=== PATIENT | female | born 1990 | race Caucasian/White ===

== ENCOUNTER 2016-11-04 10:40 | Inpatient (IN) | payer BC ==
[2016-11-14 01:41] VITALS: BMI 31.9
[2016-11-14] MEDS ORDERED: CARBOPROST TROMETHAMINE 250 MCG/ML 1 ML AMP IM PRN (01:48)
[2016-11-14] MEDS ORDERED: TERBUTALINE 1 MG/ML VIAL SQ PRN (01:48)
[2016-11-14] MEDS ORDERED: METHYLERGONOVINE 0.2 MG/ML 1 ML AMP IM PRN (01:48)
[2016-11-14] MEDS ORDERED: OXYTOCIN 10 UNIT/ML 1 ML VIAL IM PRN (01:48)
[2016-11-14] MEDS ORDERED: LIDOCAINE 1% (PF) 10 MG/ML (30 ML SDV) SQ PRN (01:48)
[2016-11-14 02:02] LABS: Basophils % (A) 0 %; CH 29.4; Eosinophils # (A) 0.1 k/uL (0-0.7); Eosinophils % (A) 1 %; HCT 38.9 % (34.0-46.0); HDW 2.84; HGB 13.1 gm/dL (11.4-16.0); Luc # (Auto) 0.26; Luc % (Auto) 2; Lymphocytes # (A) 1.6 k/uL (1.0-4.8); Lymphocytes % (A) 11 %; MCH 29.1 pg (25.0-35.0); MCHC 33.6 g/dL (31.0-37.0); MCV 86.7 fL (80.0-100.0); Mean Platelet Volume 9.3; Monocytes # (A) 0.9 k/uL (0-1.0); Monocytes % (A) 6 %; Neutrophils # (A) 11.8 k/uL (1.3-7.7); Neutrophils % (A) 80 %; RBC 4.49 m/uL (3.80-5.40); RDW 15.1 % (11.5-15.5); WBC 14.7 k/uL (3.8-10.6); WBC (Perox) 14.76
[2016-11-14] MEDS: LACTATED RINGERS 1,000 ML IV SCH ×3 (02:03→06:50)
[2016-11-14] MEDS: BUTORPHANOL 1 MG/ML 1 ML VIAL IV PRN ×2 (02:29→04:40)
[2016-11-14] MEDS ORDERED: BUPIVACAINE (PF) 0.25% 30 ML VIAL ONE (06:20)
[2016-11-14] MEDS ORDERED: fentaNYL (PF) 50 MCG/ML 5 ML AMP ONE (06:20)
[2016-11-14] MEDS ORDERED: SODIUM CHLORIDE 0.9% 100 ML BAG ONE (06:20)
[2016-11-14] MEDS: OXYTOCIN 30 UNITS/500 ML NS 30 UNIT in SALINE 1 500ML.BAG IV SCH ×3 (06:21→17:02)
--- NOTE | 2016-11-14 12:35 | P.HPOB ---
History of Present Illness H&P Date: 11/14/16 Originally scheduled for induction, but presented with strong regular uterine contractions in early active labor. Patient was monitored in the triage area and cervical change was noted. She denied fluid leakage or vaginal bleeding. Past medical history is essentially negative. Obstetric history blood type is A+, rubella status immune. Urine culture, gonorrhea and chlamydia cultures, Pap smear, HIV testing, hepatitis B surface antigen, group B strep cultures all negative. One-hour Glucola 108. Social history patient is , she has never been a smoker, she denies alcohol or drug use. Past surgical history is negative. Current medications vitamins daily. ALLERGIES none known. Family history significant for diabetes, unspecified heart issues, gout and shingles. On exam this is a pleasant white female, 5 foot 1 inch, 169 pounds, vital signs are stable and she is afebrile, blood pressure 130/87 on admission. The general physical exam is within normal limits. Chest is clear in all tong. Extremities are negative for edema. Cervix the time of admission was 6 cm dilated, 100% effaced, -2 station, vertex presentation. Artificial amniorrhexis revealed clear fluid. heart rate in the 110s to 140s baseline with good overall variability. Impression: 41-3/7 weeks intrauterine , arriving in active spontaneous labor. Plan: Close maternal and surveillance. Epidural per patient's request. Anticipate normal spontaneous vaginal delivery. Review of Systems Negative except as in HPI Past Medical History History of Any Multi-Drug Resistant Organisms: None Reported Past Surgical History: No Surgical Hx Reported Past Anesthesia/Blood Transfusion Reactions: No Reported Reaction Past Psychological History: No Psychological Hx Reported Smoking Status: Never smoker - Past Family History Father Family Medical History: No Reported History Medications and Allergies Home Medications Medication Instructions Recorded Confirmed Type Pnv with Ca,No.72/Iron/FA 1 each PO DAILY 11/14/16 11/14/16 History [ Plus Tablet] Allergies Allergy/AdvReac Type Severity Reaction Status Date / Time No Known Allergies Allergy Verified 11/14/16 01:33 Exam - Vital Signs Vital signs: Intake and Output 11/13/16 11/14/16 11/14/16 22:59 06:59 14:59 Other: # Voids 1 Weight 76.657 kg See dictation under HPI, please Results Result Diagrams: 11/14/16 01:50 Abnormal Lab Results - Last 24 Hours (Table) 11/14/16 Range/Units 01:50 WBC 14.7 H (3.8-10.6) k/uL Plt Count 146 L (150-450) k/uL Neutrophils # 11.8 H (1.3-7.7) k/uL Assessment and Plan Plan: Close maternal and surveillance. Anticipate normal spontaneous vaginal delivery. Time with Patient: Less than 30
--- NOTE | 2016-11-14 12:38 | P.PROBDLV ---
Vaginal Delivery Note - . Vaginal Delivery Note: This is a 25-year-old white female 1 para 0 EDC 11/14/2016 at 41-3/7 weeks' gestation. Patient was originally scheduled for induction, but presented in active spontaneous labor, all signs reassuring. Artificial amniorrhexis revealed clear fluid. Please see my dictated history and physical for details. Patient requested an epidural and this was placed without difficulty per the anesthesia staff. She was judged to be completely dilated and began the second stage of labor at that time. Perineal body was redraped and prepped. With excellent maternal expulsive efforts the infant's head delivered occiput anterior and she restituted accordingly. The left or anterior shoulder was gently and easily delivered from underneath the pubic symphysis at which time the oropharynx, nasopharynx, and external nares were bulb suctioned on the perineal body. The delivered a liveborn female infant with scores of 9 and 10 at one and 5 minutes respectively at one 211 hours. Umbilical cord was doubly clamped and ligated, she was handed to waiting nurses for evaluation. Infant weighed 4195 g or 9 lbs. 4 oz. The uterus was massaged. Inspection now of the cervix, vagina, perineum, periurethral, and perirectal areas revealed a small left labial laceration. This was injected with 1% lidocaine and repaired with 2 single [id number] sutures of 3-0 Vicryl for excellent reapproximation. Fundus is firm and in the midline, bleeding was initially somewhat brisk and therefore and IM shot of Methergine was given with good results. Total estimated blood loss 400 mL's. All sponge needle and is because are correct at the end of the procedure. Patient and her family are allowed to begin the bonding experience in the LDR.
[2016-11-14] MEDS ORDERED: WITCH HAZEL 1 EACH MED..PAD TOPICAL PRN (12:39)
[2016-11-14] MEDS ORDERED: diphenhydrAMINE 50 MG CAP PO PRN (12:39)
[2016-11-14] MEDS ORDERED: diphenhydrAMINE 25 MG CAP PO PRN (12:39)
[2016-11-14] MEDS ORDERED: diphenhydrAMINE 50 MG/ML 1 ML VIAL IVP PRN ×2 (12:39)
[2016-11-14] MEDS ORDERED: SIMETHICONE 80 MG CHEWABLE PO PRN (12:39)
[2016-11-14] MEDS ORDERED: BENZOCAINE/MENTHOL SPRAY 1 GM/SPRAY AEROSOL TOPICAL PRN (12:39)
[2016-11-14] MEDS ORDERED: Acetaminophen-Codeine 300-30mg TAB PO PRN (12:39)
[2016-11-14] MEDS ORDERED: ACETAMINOPHEN TAB 325 MG TAB PO PRN (12:39)
[2016-11-14] MEDS ORDERED: diphenhydrAMINE ELIXIR 25 MG/10 ML CUP PO PRN (12:39)
[2016-11-14] MEDS ORDERED: LANOLIN CREAM 5 GM TUBE TOPICAL PRN (12:39)
[2016-11-14] MEDS ORDERED: ZOLPIDEM 5 MG TAB PO PRN (12:39)
[2016-11-14] MEDS ORDERED: BISACODYL 10 MG SUPP RECTAL PRN (12:39)
[2016-11-14] MEDS ORDERED: HYDROCORTISONE 2.5% RECTAL CREAM 30 GM TUBE RECTAL PRN (12:39)
[2016-11-14 14:16] LABS: Basophils % (A) 0 %; CH 29.2; CHCM 33.1; Eosinophils % (A) 0 %; HDW 2.74; HGB 11.6 gm/dL (11.4-16.0); Luc # (Auto) 0.14; Luc % (Auto) 1; Lymphocytes # (A) 0.8 k/uL (1.0-4.8); Lymphocytes % (A) 4 %; MCH 29.4 pg (25.0-35.0); MCHC 33.1 g/dL (31.0-37.0); MCV 88.8 fL (80.0-100.0); Monocytes % (A) 5 %; Neutrophils # (A) 19.1 k/uL (1.3-7.7); Neutrophils % (A) 91 %; RBC 3.94 m/uL (3.80-5.40); RDW 15.3 % (11.5-15.5); WBC (Perox) 22.74
[2016-11-14 18:48] VITALS: RESP 16
[2016-11-14] MEDS: SENNOSIDES-DOCUSATE SODIUM 1 EACH TAB PO SCH ×2 (19:52→21:31)
[2016-11-14] MEDS: IBUPROFEN 600 MG TAB PO PRN (21:32)
[2016-11-15] MEDS: SENNOSIDES-DOCUSATE SODIUM 1 EACH TAB PO SCH (07:51)
[2016-11-15] MEDS: IBUPROFEN 600 MG TAB PO PRN (07:53)
--- NOTE | 2016-11-15 08:04 | P.DS ---
Providers Date of admission: 11/14/16 01:11 Expected date of discharge: 11/15/16 Attending physician: Amelie Ramires Primary care physician: Stated None - Discharge Diagnosis(es) (1) Post-dates Current Visit: Yes Status: Acute (2) Normal spontaneous vaginal delivery Current Visit: Yes Status: Acute Hospital Course: This is a 25-year-old 1 now para 1 woman who presented in early active labor at 41-3/7 weeks gestation. Following admission she underwent artificial rupture of membranes. She received an epidural anesthetic. She went on to have an uncomplicated delivery of a liveborn female infant weighing 9 lbs. 4 oz. with Apgars of 9 at 1 minute and 10 at 5 minutes. She had a small left labial laceration that was repaired. She had a mild hemorrhage with an EBL approximately 400 mL's. This was managed with Methergine and Pitocin. On the morning of day #1 the patient was doing very well. She was ambulating and voiding without difficulty. Her vital signs were stable. Her postdelivery hemoglobin was 11.6 which was down from 13.1. She reported minimal lochia and was breast-feeding successfully. She was deemed stable for discharge home. Procedures: Normal spontaneous vaginal delivery Patient Condition at Discharge: Good Plan - Discharge Summary Discharge Medication List Pnv with Ca,No.72/Iron/FA [ Plus Tablet] 1 each PO DAILY 11/14/16 [ History] Follow up Appointment(s)/Referral(s): Amelie Ramires MD [STAFF PHYSICIAN] - 6 Weeks Activity/Diet/Wound Care/Special Instructions: Follow-up in the office in 6 weeks . Call with any concerning signs or symptoms including heavy vaginal bleeding, severe abdominal pain, fever greater than 101, swelling or redness of the lower extremities, foul vaginal discharge, or signs of depression. Nothing in the vagina for 6 weeks after delivery, specifically no intercourse. Discharge Disposition: HOME SELF-CARE
[2016-11-15 14:04] VITALS: BP 115/62; PULSE 97; TEMP 98
== END 2016-11-15 15:45 | disposition home or self-care (01) | DRG 774 ==
LOC: 4FBP 11-14 01:11
PROVIDERS: ADMIT Obstetrics & Gynecology; ATTEND Obstetrics & Gynecology
PROC: 00HU33Z Insertion of Infusion Device into Spinal Canal, Percutaneous Approach (ICD-10-PCS; principal; 2016-11-14)
PROC: 10907ZC Drainage of Amniotic Fluid, Therapeutic from Products of Conception, Via Natural or Artificial Opening (ICD-10-PCS; principal; 2016-11-14)
PROC: 3E0R3CZ (ICD-10-PCS; principal; 2016-11-14)
PROC: 0HQ9XZZ Repair Perineum Skin, External Approach (ICD-10-PCS; principal; 2016-11-14)
PROC: 10E0XZZ Delivery of Products of Conception, External Approach (ICD-10-PCS; principal; 2016-11-14)
DX: O48.0 Post-term pregnancy (principal); O72.1 Other immediate postpartum hemorrhage; Z37.0 Single live birth; O70.0 First degree perineal laceration during delivery; Z3A.41 41 weeks gestation of pregnancy
CPT/HCPCS: 85025; 88307

== ENCOUNTER 2018-11-10 07:59 | Inpatient (IN) | payer BC ==
[2018-11-10] MEDS: LACTATED RINGERS 1,000 ML IV SCH ×2 (08:30→11:00)
--- NOTE | 2018-11-10 09:10 | P.HPOB ---
History of Present Illness H&P Date: 11/10/18 This is a 27-year-old white female 2 para 1001 EDC 11/09/2018 at 40 and one sevenths weeks' gestation. Patient presents this morning with strong regular uterine contractions whicj started at home this morning is well. She denies bleeding or fluid leakage. Fetus is been active throughout the . Past medical history is essentially negative. Past surgical history is negative. Current medications vitamins daily. ALLERGIES none known. Family history significant for diabetes, hypertension, gout, and creatinine disease, and shingles. Reproductive history is significant for 9 lbs. 4 oz. vaginal delivery 2017. Social history patient is , she is never been a smoker, she denies alcohol or drug use. history is significant for blood type A+, rubella status immune. VDRL testing, hepatitis B surface antigen, HIV testing, group B strep cultures all negative. One-hour Glucola 99. On exam this is a pleasant white female who is 5 foot 0 inches, 168 pounds, blood pressure 115/79, patient is afebrile. The general physical exam is within normal limits. The chest is clear in all tong. Extremities reveal no edema. Cervix is 8-9 cm on admission, intact membranes, vertex presentation, 90 % effaced, -1 station. heart rate consistent with reactive NST. Assessment: 40 and one sevenths weeks intrauterine , active spontaneous labor, delivery imminent. Plan: Continue close maternal and surveillance. Analgesic options are reviewed and declined. Anticipate normal spontaneous vaginal delivery. Review of Systems Constitutional: Reports as per HPI Past Medical History History of Any Multi-Drug Resistant Organisms: None Reported Past Surgical History: No Surgical Hx Reported Past Anesthesia/Blood Transfusion Reactions: No Reported Reaction Past Psychological History: No Psychological Hx Reported Smoking Status: Never smoker - Past Family History Father Family Medical History: No Reported History Medications and Allergies Home Medications Medication Instructions Recorded Confirmed Type Pnv,Calcium 72/Iron/Folic Acid 1 each PO DAILY 11/14/16 11/10/18 History [ Plus Tablet] Allergies Allergy/AdvReac Type Severity Reaction Status Date / Time No Known Allergies Allergy Verified 11/14/16 01:33 Exam See dictation under HPI please Assessment and Plan Assessment: 40 and one sevenths weeks intrauterine , active labor, delivery imminent. All signs reassuring. Plan: Anticipate normal spontaneous vaginal delivery. Time with Patient: Less than 30
[2018-11-10] MEDS ORDERED: diphenhydrAMINE 50 MG/ML 1 ML VIAL IVP PRN ×2 (09:13)
[2018-11-10] MEDS ORDERED: HYDROCORTISONE 2.5% RECTAL CREAM 30 GM TUBE RECTAL PRN (09:13)
[2018-11-10] MEDS ORDERED: diphenhydrAMINE 50 MG CAP PO PRN (09:13)
[2018-11-10] MEDS ORDERED: diphenhydrAMINE 25 MG CAP PO PRN (09:13)
[2018-11-10] MEDS ORDERED: ZOLPIDEM 5 MG TAB PO PRN (09:13)
[2018-11-10] MEDS ORDERED: LANOLIN CREAM 5 GM TUBE TOPICAL PRN (09:13)
[2018-11-10] MEDS ORDERED: SIMETHICONE 80 MG CHEWABLE PO PRN (09:13)
[2018-11-10] MEDS ORDERED: BENZOCAINE/MENTHOL SPRAY 1 GM/SPRAY AEROSOL TOPICAL PRN (09:13)
[2018-11-10] MEDS ORDERED: WITCH HAZEL 1 EACH MED..PAD TOPICAL PRN (09:13)
[2018-11-10] MEDS ORDERED: ACETAMINOPHEN TAB 325 MG TAB PO PRN (09:13)
[2018-11-10] MEDS ORDERED: diphenhydrAMINE ELIXIR 25 MG/10 ML CUP PO PRN (09:13)
[2018-11-10] MEDS ORDERED: HYDROcodone/APAP 5-325MG 1 EACH TAB PO PRN (09:13)
--- NOTE | 2018-11-10 09:13 | P.PROBDLV ---
Vaginal Delivery Note - . Vaginal Delivery Note: This is a 27-year-old white female 2 para 1001 EDC 11/09/2016 at 40 and one sevenths weeks' gestation. Patient presented this morning from home with strong regular uterine contractions, in active labor. is essentially unremarkable. Blood type A+, rubella status immune, group B strep cultures negative. Please see my dictated history and physical for details. On admission patient was 8-9 cm dilated. Artificial amniorrhexis revealed clear abundant fluid. heart tones were reassuring throughout the first and second stages of labor. 90% effacement, 0 station was noted. Patient had an urge to push and was completely dilated minutes afterwards. Perineal body was prepped and draped in usual sterile fashion. With excellent expulsive efforts the head delivered occiput anterior and he restituted accordingly. There was a nuchal cord 1 that was reduced on the perineal body. The left or anterior shoulder was delivered from underneath the pubic symphysis at which time the oropharynx, nasopharynx and external nares were all bulb suctioned on the perineal body. Patient was officially delivered of a liveborn male at 0843 hours. Umbilical cord was doubly clamped and ligated. He was handed to waiting nurses for evaluation where scores of 9 and 10 at one and 5 minutes respectively were given. The placenta delivered spontaneously, it was inspected and noted to be intact with trivascular cord at 0846 hours. Uterus is then massaged. Inspection of the cervix, vagina, perineum, and periurethral areas revealed no lacerations and no defects. Fundus is firm and in the midline, symmetric and 16 week size upon completion of delivery. Total estimated blood loss 250 mL's. weighs 8 lbs. 6 oz. or 3810 g. Patient and her are requesting circumcision further son.
[2018-11-10] MEDS ORDERED: OXYTOCIN 20 UNITS/1000 ML NS 1,000 ML IV SCH (09:15)
[2018-11-10 10:22] VITALS: BMI 32.8
[2018-11-10] MEDS: IBUPROFEN 600 MG TAB PO PRN ×2 (11:52→18:25)
[2018-11-10] MEDS: SENNOSIDES-DOCUSATE SODIUM 1 EACH TAB PO SCH (21:47)
[2018-11-11 00:30] VITALS: RESP 15
[2018-11-11] MEDS: IBUPROFEN 600 MG TAB PO PRN (04:39)
[2018-11-11] MEDS: SENNOSIDES-DOCUSATE SODIUM 1 EACH TAB PO SCH (07:40)
--- NOTE | 2018-11-11 07:48 | P.DS ---
Providers Date of admission: 11/10/18 08:16 Expected date of discharge: 11/11/18 Attending physician: Amelie Ramires Primary care physician: Stated None Hospital Course: This is a 27-year-old white female 2 para 1001 EDC 11/09/2018 at 40 and one sevenths weeks' gestation. Patient presented in active spontaneous labor from home. Fetus is been active throughout the . She denied vaginal bleeding or fluid leakage. history significant for rubella immune, blood type A+, group B strep cultures negative. Please see dictated history and physical for details. Patient was admitted and quickly underwent a spontaneous vaginal delivery. She gave to a liveborn male with scores of 9 and 10 at one and 5 minutes respectively. There was a nuchal cord easily reduced, and estimated blood loss of 250 mL, and and intact perineal body not requiring suturing. weighed 8 lbs. 6 oz. or 3810 g. Please see dictated delivery note for details. This morning the patient is doing well. She is voiding, ambulating and passing flatus without difficulty. Vital signs are stable and she is afebrile. Fundus is firm and in the midline, symmetric and 16-18 week size. Breasts are not engorged. Perineal body is clean and dry. Patient is judged to be in excellent condition for discharge home. She is being discharged home today and will follow-up with me in the office in 6 weeks. I have reminded her no intercourse, tampons or douching. She will use [id number] Advil or Aleve as needed for pain, or ibuprofen tablets, 200 mg pills, 3 every 6 hours as needed. She will call me with any fevers shakes or chills, foul smelling or copious lochia, with the passage of large blood clots, with any pain not alleviated by [id number] products, or indeed with any concerns. Patient Condition at Discharge: Good Plan - Discharge Summary Discharge Rx Participant: No New Discharge Prescriptions: No Action Pnv,Calcium 72/Iron/Folic Acid [ Plus Tablet] 1 each PO DAILY Discharge Medication List Pnv,Calcium 72/Iron/Folic Acid [ Plus Tablet] 1 each PO DAILY 11/14/16 [ History] Discharge Disposition: HOME SELF-CARE
[2018-11-11 08:40] VITALS: BP 107/68; PULSE 73; TEMP 97.6
== END 2018-11-11 11:06 | disposition home or self-care (01) | DRG 807 ==
LOC: FBPOP 07:59 → 4FBP 08:16
PROVIDERS: ADMIT Obstetrics & Gynecology; ATTEND Obstetrics & Gynecology
PROC: 10E0XZZ Delivery of Products of Conception, External Approach (ICD-10-PCS; principal; 2018-11-10)
DX: O69.81X0 Labor and delivery complicated by cord around neck, without compression, not applicable or unspecified (principal); Z37.0 Single live birth; Z3A.40 40 weeks gestation of pregnancy; Z82.49 Family history of ischemic heart disease and other diseases of the circulatory system; Z83.3 Family history of diabetes mellitus

== ENCOUNTER 2024-10-16 05:28 | Inpatient (IN) | payer SELFPAY ==
[2024-10-16] MEDS: LACTATED RINGERS 1,000 ML IV SCH (05:50)
[2024-10-16] MEDS ORDERED: TERBUTALINE 1 MG/ML VIAL SQ PRN (05:51)
[2024-10-16] MEDS ORDERED: CARBOPROST TROMETHAMINE 250 MCG/ML 1 ML AMP IM PRN (05:51)
[2024-10-16] MEDS ORDERED: LIDOCAINE 0.5% (PF) 5 MG/ML (50 ML SDV) SQ PRN (05:51)
[2024-10-16] MEDS ORDERED: miSOPROStoL 200 MCG TAB RECTAL PRN (05:51)
[2024-10-16] MEDS ORDERED: TRANEXAMIC 1,000 MG/100ML-NACL 1,000 MG in EMPTY BAG 1 BAG IV PRN (05:51)
[2024-10-16] MEDS ORDERED: METHYLERGONOVINE 0.2 MG/ML 1 ML AMP IM PRN (05:51)
[2024-10-16] MEDS ORDERED: miSOPROStoL 200 MCG TAB PO PRN (05:51)
[2024-10-16] MEDS ORDERED: OXYTOCIN 10 UNIT/ML 1 ML VIAL IM PRN (05:51)
[2024-10-16 06:15] LABS: Basophils # (A) 0.1 k/uL (0-0.2); Basophils % (A) 0 %; Eosinophils # (A) 0.2 k/uL (0-0.7); Eosinophils % (A) 1 %; HCT 38.5 % (34.0-46.0); HGB 12.6 gm/dL (11.4-16.0); Lymphocytes # (A) 2.5 k/uL (1.0-4.8); Lymphocytes % (A) 18 %; MCH 27.9 pg (25.0-35.0); MCHC 32.8 g/dL (31.0-37.0); MCV 85.2 fL (80.0-100.0); Mean Platelet Volume 8.5; Monocytes # (A) 0.7 k/uL (0-1.0); Monocytes % (A) 5 %; Neutrophils # (A) 10.1 k/uL (1.3-7.7); Neutrophils % (A) 74 %; Platelet Count 161 k/uL (150-450); RBC 4.52 m/uL (3.80-5.40); RDW 15.1 % (11.5-15.5); WBC 13.7 k/uL (3.8-10.6)
--- NOTE | 2024-10-16 06:17 | P.HPOB ---
History of Present Illness H&P Date: 10/16/24 Chief Complaint: IUP at 41 and 1/7 weeks, active labor 33-year-old 3 para 2-0-0-2 that presented to labor and delivery with complaints of regular painful contractions. Patient states she started anita around 4 AM they became regular nature therefore she presented to labor and delivery. Patient was noted to be 9+ centimeters upon admission. Patient states she has been receiving routine care which has been essentially uncomplicated. Patient denies loss of fluid at home. She notes good movement. On blood work patient is a blood type of a positive, rubella status immune, RPR is nonreactive, hepatitis B surface engine is negative, HIV is negative, beta strep culture was positive on 09/09 Review of Systems Constitutional: Denies chills, Denies fatigue, Denies fever Ears, nose, mouth and throat: Denies headache Cardiovascular: Reports leg edema Respiratory: Denies dyspnea Gastrointestinal: Denies constipation, Denies diarrhea, Denies nausea, Denies vomiting Genitourinary: Reports Past Medical History Past Medical History: No Reported History Additional Past Medical History / Comment(s): denies History of Any Multi-Drug Resistant Organisms: None Reported Past Surgical History: No Surgical Hx Reported Additional Past Surgical History / Comment(s): denies Past Anesthesia/Blood Transfusion Reactions: No Reported Reaction Additional Past Anesthesia/Blood Transfusion Reaction / Comment(s): denies Past Psychological History: No Psychological Hx Reported - Past Family History Father Family Medical History: No Reported History Medications and Allergies Home Medications Medication Instructions Recorded Confirmed Type Pnv,Calcium 72/Iron/Folic Acid 1 each PO DAILY 11/14/16 10/16/24 History [ Plus Tablet] L.acidoph,Paracasei, B.lactis 1 each PO DAILY 10/16/24 10/16/24 History [Probiotic] Allergies Allergy/AdvReac Type Severity Reaction Status Date / Time amoxicillin Allergy Unknown Verified 10/16/24 05:40 Childhood Exam Osteopathic Statement: *. No significant issues noted on an osteopathic structural exam other than those noted in the History and Physical/Consult. Intake and Output 10/15/24 10/15/24 10/16/24 14:59 22:59 06:59 Other: Weight 78.925 kg Targeted physical exam is performed this date General Is a well-nourished well- developed female, breathing appears nonlabored, abdomen is noted to be gravid, on cervical exam she is completely dilated 100% effaced -1 station amniotomy is performed and copious clear fluid is obtained. heart tones are noted to be category 1 and she is anita every 2 minutes. Assessment and Plan (1) Post-dates Current Visit: No Status: Acute Code(s): O48.0 - POST-TERM SNOMED Code(s): 10533653 Plan: 33-year-old G3, P2 at 41 and 1 sevenths weeks that presents in active labor. Patient is admitted to labor and delivery. Group beta strep positive rectovaginal culture is appreciated therefore ampicillin has begun. Amniotomy is performed and clear fluid is obtained. Anticipate spontaneous vaginal delivery.
[2024-10-16] MEDS: OXYTOCIN 30 UNITS/500 ML NS 30 UNIT in SALINE 1 500ML.BAG IV SCH (06:50)
[2024-10-16] MEDS ORDERED: diphenhydrAMINE 50 MG CAP PO PRN (06:58)
[2024-10-16] MEDS ORDERED: diphenhydrAMINE 50 MG/ML 1 ML VIAL IVP PRN ×2 (06:58)
[2024-10-16] MEDS ORDERED: diphenhydrAMINE 25 MG CAP PO PRN (06:58)
[2024-10-16] MEDS ORDERED: ZOLPIDEM 5 MG TAB PO PRN (06:58)
[2024-10-16] MEDS ORDERED: LANOLIN CREAM 1 GM TUBE TOPICAL PRN (06:58)
[2024-10-16] MEDS ORDERED: SIMETHICONE 80 MG CHEWABLE PO PRN (06:58)
[2024-10-16] MEDS ORDERED: HYDROCORTISONE 2.5% RECTAL CREAM 30 GM TUBE RECTAL PRN (06:58)
--- NOTE | 2024-10-16 06:58 | P.PROBDLV ---
Vaginal Delivery Note - . Vaginal Delivery Note: 33-year-old 3 para 2-0-0-2 that presented to labor and delivery at 41 and 1 sevenths weeks, estimated due date of 10/08. Patient states she began anita around 4 AM. Patient was admitted to labor and delivery and noted to be 9 cm. Amniotomy was performed upon admission. Patient progressed to complete began pushing and had a normal spontaneous vaginal delivery of a viable female , compound left hand at 9 pounds 12 ounces, Apgars of 8 and 9 at 1 and 5 minutes respectively. After 2-minute delay the umbilical cord was doubly clamped and cut. Infant was handed to the maternal abdomen. Spontaneous cry was noted at . On inspection the patient's vaginal vault no lacerations were appreciated. Uterus was noted to be firm and below the umbilicus. All counts were noted be correct x 2. Patient and infant tolerated delivery well and are resting comfortably.
[2024-10-16] MEDS: IBUPROFEN 800 MG TAB PO SCH (08:04)
[2024-10-16] MEDS: SENNOSIDES-DOCUSATE SODIUM 1 EACH TAB PO SCH (08:05)
[2024-10-16] MEDS: PRENATAL VIT-IRON-FOLIC ACID 1 EACH TABLET PO SCH (11:59)
[2024-10-16] MEDS: guaiFENesin 600 MG TABLET.ER PO SCH (12:23)
[2024-10-16] MEDS: ACETAMINOPHEN TAB 500 MG TAB PO SCH (13:34)
--- NOTE | 2024-10-17 08:50 | P.DS ---
Providers Date of admission: 10/16/24 05:42 Expected date of discharge: 10/17/24 Attending physician: Ivette Ramirez Primary care physician: Stated None - Discharge Diagnosis(es) (1) Normal spontaneous vaginal delivery Current Visit: No Status: Acute Hospital Course: Patient presented in active labor. She underwent a normal vaginal delivery. course was uneventful. She denies nausea, vomiting, chest pain, shortness of breath or calf pain. Patient will be discharged home day #1 in stable condition to follow-up with me in 6 weeks. Plan - Discharge Summary New Discharge Prescriptions: No Action Pnv,Calcium 72/Iron/Folic Acid [ Plus Tablet] 1 each PO DAILY L.acidoph,Paracasei, B.lactis [Probiotic] 1 each PO DAILY Discharge Medication List Pnv,Calcium 72/Iron/Folic Acid [ Plus Tablet] 1 each PO DAILY 11/14/16 [History] L.acidoph,Paracasei, B.lactis [Probiotic] 1 each PO DAILY 10/16/24 [History] Follow up Appointment(s)/Referral(s): Ivtete Ramirez DO [Doctor of Osteopathic Medicine] - 6 Weeks (6 week appt 11/28/2024 @9:45am) Discharge Disposition: HOME SELF-CARE
[2024-10-17 08:59] VITALS: BP 126/58; PULSE 66; RESP 16; TEMP 97.8
== END 2024-10-17 11:12 | disposition home or self-care (01) | DRG 807 ==
LOC: FBPOP 05:28 → 4FBP 05:42
PROVIDERS: ADMIT Obstetrics & Gynecology Obstetrics; ATTEND Obstetrics & Gynecology
PROC: 10E0XZZ Delivery of Products of Conception, External Approach (ICD-10-PCS; principal; 2024-10-16)
PROC: 10907ZC Drainage of Amniotic Fluid, Therapeutic from Products of Conception, Via Natural or Artificial Opening (ICD-10-PCS; 2024-10-16)
DX: O48.0 Post-term pregnancy (principal); Z37.0 Single live birth; Z3A.41 41 weeks gestation of pregnancy
CPT/HCPCS: 59025; 85025; 86850; 86900; 86901; 99213